=== PATIENT | female | born 1985 | race Caucasian/White ===

== ENCOUNTER 2018-04-14 18:33 | Inpatient (IN) | payer MEDICAID ==
[~2018-04-14] VITALS: Ht 152.4 cm; Wt 95.5 kg
--- NOTE | ~2018-04-14 | MORECARE ---
CASE MANAGEMENT DISCHARGE SUMMARY PATIENT: FELIX DEY UNIT: [id number] ADM DATE: 04/14/18 AGE: 33 : [birth year] SEX: F ROOM/BED: D.2309 AUTHOR: CASE, PLASMA TABLE OPERATOR PHYSICIAN: REFERRING PHYSICIAN: RYLEY GUTIERREZ MD DATE OF SERVICE: 04/14/18 Discharge Plan Patient Name: FELIX DEY Facility: [facility]:[place] : 1985 Planned Disposition: Anticipated Discharge Date: Discharge Date: Expected LOS: Initial Reviewer: [email or web address] Initial Review Date: 04/14/2018 Generated: 04/17/18 9:22 am Patient Name: FELIX DEY Page [id number] All edits/amendments must be made on the electronic document DICTATION DATE: 04/17/18820 PUPPY TRAINER: 04/17/18820 RPT#: [id number] DC DATE: STATUS: ADM IN [facility] [address] [place] [address] END OF REPORT
--- NOTE | ~2018-04-14 | CN ---
PATIENT NAME:FELIX DEY MEDICAL RECORD: [id number] : [birth year] LOCATION:LETY.2309 ADMIT DATE: 04/14/18 ACCOUNT: [id number] CONSULTING PHYSICIAN: GILDARDO MEJÍA MD REFERRING PHYSICIAN: RYLEY GUTIERREZ MD DATE OF CONSULTATION: 04/17/2018 IDENTIFYING DATA: The patient is 33 years old and she is admitted to the hospital on a voluntary basis. CHIEF COMPLAINT: Overdose. HISTORY OF PRESENT ILLNESS: The patient has a long history of mental illness and a well-established diagnosis of bipolar disorder. She recently moved here from [place]. She endorses a great number of stressors and depressive symptoms. She took a very serious overdose of Xanax, Valium, and amitriptyline; and was briefly intubated. She did this with the full intent of killing herself. She continues to endorse depressive symptoms and says she feels helpless and hopeless. MENTAL STATUS EXAMINATION: The patient is awake; alert; and oriented to person, place, time, and situation. Her mood is flat. Her affect is constricted. Thought processes are circumstantial. Memory, concentration, and abstraction abilities are mildly impaired. She denies any overt psychotic symptoms. ASSETS: Supportive family members. LIABILITIES: Limited insight. DIAGNOSTIC IMPRESSION: 1. Bipolar disorder. 2. Status post polysubstance overdose. PLAN: At this time, the patient requires inpatient psychiatric care and should be transferred to the nearest receiving facility once medically stable. Her long-term prognosis is guarded. TRANSINT:[id number] Voice Confirmation ID: [id number] DOCUMENT ID: [id number] GILDARDO MEJÍA MD at 1508 CC: [id number] DICTATION DATE: 04/17/18 1526 REMOTE RECRUITER: 04/17/18 1629 ADM IN [place] [id number] [place] [address]
--- NOTE | ~2018-04-14 | PN ---
PATIENT:FELIX DEY MEDICAL RECORD: [id number] LOCATION:[facility] D.230 ADMISSION DATE: 04/14/18 PROGRESS NOTE DATE OF SERVICE: 04/17/2018 HISTORY OF PRESENT ILLNESS: This is a 33-year-old female who was admitted through the Emergency Room for acute ingestion of benzodiazepine as well as alcohol. The patient was intubated. The patient was extubated yesterday. She is doing well, awake, and alert. There is no fever or chills. No chest pains. She had an uneventful night. Chest x-ray shows significant improvement with no atelectasis. PHYSICAL EXAMINATION: GENERAL: Physical exam reveals a young female who is in no acute distress. VITAL SIGNS: Temperature 97.5, heart rate of 90, respiratory rate of 18, blood pressure 106/76, saturation on room air is 96%. HEENT: Unremarkable. Normocephalic. Pupils are equal and reactive. NECK: Supple. There is no adenopathy. Trachea is midline. CHEST: Lungs are clear. There is no chest wall tenderness. HEART: Cardiac exam shows no jugular venous distention, murmur or gallop. ABDOMEN: Benign. There is no tenderness, no distention. EXTREMITIES: Show no clubbing, cyanosis or edema. LABORATORY DATA: Showed white count 11.6, hemoglobin 9.8, and platelet count is 238,000. The chemistry is unremarkable, essentially normal. ASSESSMENT: Acute drug overdose. The patient has improved. The patient would need a psychiatric consultation prior to discharge. She will also need increasing activity before discharge. PLAN: I will sign off on this patient. If needed, please consult pulmonary team. TRANSINT:[id number] Voice Confirmation ID: [id number] DOCUMENT ID: [id number] MARIAA BOLIVAR at 1307 CC: [id number] DICTATION DATE: 04/17/18 1658 COGENERATION OPERATOR: 04/17/18 2325 DIS IN 04/18/18 [place] [id number] [place] [address]
[2018-04-14] MEDS ORDERED: XANAX1 MG PO (18:53)
[2018-04-14] MEDS ORDERED: AMITRIPTYLINE100 MG PO (18:59)
[2018-04-14] MEDS ORDERED: DEPAKOTE SPRIN125 MG PO (18:59)
[2018-04-14] MEDS ORDERED: EFFEXOR75 MG (19:00)
[2018-04-14] MEDS ORDERED: HYDROCODONE-APA1 TAB PO (19:00)
[2018-04-14] MEDS ORDERED: SEROQUEL200 MG PO (19:00)
[2018-04-14] MEDS ORDERED: DITROPAN X5 MG/BOTTL (19:00)
[2018-04-14 19:30] VITALS: BP 130/74
[2018-04-14 19:36] LABS: BASOPHILS 0.1 % (0-2); EOSINOPHILS 1.4 % (0-7); HEMATOCRIT 36.2 % (36.0-48.0); HEMOGLOBIN 11.5 g/dL (12-16); IMMATURE GRANULOCYTES 1.3 % (0-5); LYMPHOCYTES 17.3 % (15-50); MCH 28.7 pg (26.0-34.0); MCHC 31.8 g/dL (31.0-37.0); MCV 90.3 fL (80.0-100.0); MEAN PLATELET VOLUME 10.3 fL (7.4-10.4); MONOCYTES 7.1 % (2-11); NEUTROPHILS 72.8 % (40-80); PLATELET COUNT 213 10x3/uL (130-400); RBC 4.01 10x6/uL (4.00-5.40); RDW 15.3 % (11.5-14.5); WBC 11.9 10x3/uL (4.8-10.8)
[2018-04-14 19:51] LABS: APPEARANCE CLEAR (CLEAR); BILIRUBIN NEGATIVE (NEGATIVE); COLOR STRAW (YELLOW); GLUCOSE NEGATIVE (NEGATIVE); KETONE NEGATIVE (NEGATIVE); NITRITE NEGATIVE (NEGATIVE); PROTEIN NEGATIVE (NEGATIVE); UROBILINOGEN NORMAL (NORMAL)
[2018-04-14 19:52] LABS: ALBUMIN 2.8 g/dL (3.4-5.0); ALKALINE PHOSPHATASE 85 U/L (46-116); ALT (SGPT) 20 U/L (10-68); BILIRUBIN - TOTAL 0.14 mg/dL (0.2-1.3); CALC OSMOLALITY 275 mosm/kg (275-300); CALCIUM 8.2 mg/dL (8.5-10.1); CARBON DIOXIDE 28.1 mmol/L (21.0-32.0); CHLORIDE - SERUM 104 mmol/L (98-107); CREATININE - SERUM 1.1 mg/dL (0.6-1.3); GLUCOSE 94 mg/dL (74-106); MAGNESIUM - SERUM 1.8 mg/dL (1.8-2.4); PROTEIN - SERUM 7.2 g/dL (6.4-8.2); SODIUM 138 mmol/L (136-145); UREA NITROGEN 12 mg/dL (7-18); WHITE CELLS - URINE 0-5 /hpf (0-5); eGFR NON AFRICAN AMERICAN 60 mL/min (90-120)
[2018-04-14 19:53] LABS: BACTERIA FEW /hpf (NONE SEEN)
[2018-04-14 19:56] LABS: HCG URINE NEGATIVE (NEGATIVE)
[2018-04-14 19:57] LABS: UDS - AMPHET NEGATIVE QUAL (NEGATIVE); UDS - BARB NEGATIVE QUAL (NEGATIVE); UDS - BENZO POSITIVE QUAL (NEGATIVE); UDS - COCAINE NEGATIVE QUAL (NEGATIVE); UDS - OPIATE NEGATIVE QUAL (NEGATIVE); UDS - PCP NEGATIVE QUAL (NEGATIVE); UDS - THC NEGATIVE QUAL (NEGATIVE)
[2018-04-14 20:30] VITALS: BP 119/67
[2018-04-14 20:32] LABS: CKMB 1.8 U/L (0.0-3.6); CREATINE KINASE 479 UL (21-215); TROPONIN-I < 0.017 ng/mL (0.000-0.060)
[2018-04-14 21:30] VITALS: BP 125/68
[2018-04-14 22:30] VITALS: BP 129/71
[2018-04-14 23:30] VITALS: BP 128/78
[2018-04-15] VITALS (21 sets, daily range): BP systolic 127–142; BP diastolic 68–102
[2018-04-15 03:00] LABS: BASOPHILS 0.3 % (0-2); EOSINOPHILS 1.1 % (0-7); HEMATOCRIT 36.2 % (36.0-48.0); HEMOGLOBIN 11.5 g/dL (12-16); IMMATURE GRANULOCYTES 1.9 % (0-5); LYMPHOCYTES 18.7 % (15-50); MCH 28.8 pg (26.0-34.0); MCHC 31.8 g/dL (31.0-37.0); MCV 90.7 fL (80.0-100.0); MEAN PLATELET VOLUME 9.9 fL (7.4-10.4); PLATELET COUNT 214 10x3/uL (130-400); RBC 3.99 10x6/uL (4.00-5.40); RDW 15.5 % (11.5-14.5)
[2018-04-15 03:36] LABS: ALBUMIN 2.8 g/dL (3.4-5.0); ANION GAP 9.8 mmol/L (8-16); BILIRUBIN - TOTAL 0.18 mg/dL (0.2-1.3); CALCIUM 8.2 mg/dL (8.5-10.1); CARBON DIOXIDE 30.5 mmol/L (21.0-32.0); POTASSIUM - SERUM 4.3 mmol/L (3.5-5.1); PROTEIN - SERUM 7.1 g/dL (6.4-8.2)
[2018-04-16] VITALS (33 sets, daily range): BP systolic 91–136; BP diastolic 60–92
[2018-04-16 03:16] LABS: BASOPHILS 0.2 % (0-2); EOSINOPHILS 2.5 % (0-7); HEMATOCRIT 34.6 % (36.0-48.0); HEMOGLOBIN 10.9 g/dL (12-16); IMMATURE GRANULOCYTES 1.4 % (0-5); LYMPHOCYTES 25.9 % (15-50); MCH 28.4 pg (26.0-34.0); MCHC 31.5 g/dL (31.0-37.0); MCV 90.1 fL (80.0-100.0); MEAN PLATELET VOLUME 9.5 fL (7.4-10.4); MONOCYTES 11.1 % (2-11); NEUTROPHILS 58.9 % (40-80); PLATELET COUNT 209 10x3/uL (130-400); RBC 3.84 10x6/uL (4.00-5.40); RDW 15.8 % (11.5-14.5); WBC 10.6 10x3/uL (4.8-10.8)
[2018-04-16 03:55] LABS: ALBUMIN 2.4 g/dL (3.4-5.0); ALKALINE PHOSPHATASE 86 U/L (46-116); BILIRUBIN - TOTAL 0.14 mg/dL (0.2-1.3); CARBON DIOXIDE 27.2 mmol/L (21.0-32.0); CHLORIDE - SERUM 106 mmol/L (98-107); CREATINE KINASE 155 UL (21-215); CREATININE - SERUM 0.8 mg/dL (0.6-1.3); GLUCOSE 108 mg/dL (74-106); MAGNESIUM - SERUM 1.8 mg/dL (1.8-2.4); PHOSPHOROUS 4.8 mg/dL (2.5-4.9); POTASSIUM - SERUM 4.1 mmol/L (3.5-5.1); PRO BNP 57 pg/mL (0-125); PROTEIN - SERUM 6.6 g/dL (6.4-8.2); SODIUM 140 mmol/L (136-145); eGFR NON AFRICAN AMERICAN 87 mL/min (90-120)
[2018-04-16 03:56] LABS: ALT (SGPT) 13 U/L (10-68); CALC OSMOLALITY 278 mosm/kg (275-300); UREA NITROGEN 9 mg/dL (7-18)
[2018-04-16] MEDS ORDERED: NYSTATIN OINTME15 GM TOPICAL (17:14)
[2018-04-16] MEDS ORDERED: CELEXA20 MG PO (17:15)
[2018-04-16] MEDS ORDERED: DEPAKOTE500 MG PO (17:15)
[2018-04-16] MEDS ORDERED: SEROQUEL300 MG PO (17:17)
[2018-04-16] MEDS ORDERED: VISTARIL25 MG PO (17:17)
[2018-04-17] VITALS (23 sets, daily range): BP systolic 93–125; BP diastolic 44–86; Ht 152.4 cm; Wt 95.5 kg
[2018-04-17 04:33] LABS: BASOPHILS 0.2 % (0-2); HEMATOCRIT 30.9 % (36.0-48.0); HEMOGLOBIN 9.8 g/dL (12-16); MCH 28.5 pg (26.0-34.0); MCHC 31.7 g/dL (31.0-37.0); MCV 89.8 fL (80.0-100.0); MEAN PLATELET VOLUME 9.9 fL (7.4-10.4); MONOCYTES 10.2 % (2-11); NEUTROPHILS 59.6 % (40-80); PLATELET COUNT 238 10x3/uL (130-400); RBC 3.44 10x6/uL (4.00-5.40); RDW 15.8 % (11.5-14.5); WBC 11.6 10x3/uL (4.8-10.8)
[2018-04-17 04:54] LABS: ALBUMIN 2.3 g/dL (3.4-5.0); ALKALINE PHOSPHATASE 96 U/L (46-116); BILIRUBIN - TOTAL 0.25 mg/dL (0.2-1.3); CALC OSMOLALITY 278 mosm/kg (275-300); CALCIUM 7.8 mg/dL (8.5-10.1); CARBON DIOXIDE 27.7 mmol/L (21.0-32.0); CHLORIDE - SERUM 106 mmol/L (98-107); CREATININE - SERUM 0.9 mg/dL (0.6-1.3); GLUCOSE 97 mg/dL (74-106); PROTEIN - SERUM 6.6 g/dL (6.4-8.2); SODIUM 141 mmol/L (136-145); UREA NITROGEN 8 mg/dL (7-18); eGFR NON AFRICAN AMERICAN 76 mL/min (90-120)
[2018-04-17 05:00] LABS: ALT (SGPT) 20 U/L (10-68)
[2018-04-18] VITALS (9 sets, daily range): BP systolic 98–118; BP diastolic 50–87
[2018-04-18 04:55] LABS: BASOPHILS 0.2 % (0-2); EOSINOPHILS 6.4 % (0-7); HEMATOCRIT 30.9 % (36.0-48.0); HEMOGLOBIN 9.8 g/dL (12-16); IMMATURE GRANULOCYTES 1.8 % (0-5); LYMPHOCYTES 29.1 % (15-50); MCH 28.4 pg (26.0-34.0); MCHC 31.7 g/dL (31.0-37.0); MCV 89.6 fL (80.0-100.0); MEAN PLATELET VOLUME 10.3 fL (7.4-10.4); MONOCYTES 10.1 % (2-11); NEUTROPHILS 52.4 % (40-80); PLATELET COUNT 282 10x3/uL (130-400); RBC 3.45 10x6/uL (4.00-5.40); RDW 15.2 % (11.5-14.5); WBC 9.5 10x3/uL (4.8-10.8)
[2018-04-18 05:46] LABS: ALBUMIN 2.4 g/dL (3.4-5.0); ALKALINE PHOSPHATASE 89 U/L (46-116); BILIRUBIN - TOTAL 0.15 mg/dL (0.2-1.3); CALCIUM 8.1 mg/dL (8.5-10.1); CARBON DIOXIDE 29.1 mmol/L (21.0-32.0); CHLORIDE - SERUM 105 mmol/L (98-107); CREATININE - SERUM 0.9 mg/dL (0.6-1.3); GLUCOSE 122 mg/dL (74-106); POTASSIUM - SERUM 3.7 mmol/L (3.5-5.1); PROTEIN - SERUM 6.7 g/dL (6.4-8.2); SODIUM 141 mmol/L (136-145); eGFR NON AFRICAN AMERICAN 76 mL/min (90-120)
[2018-04-18 05:50] LABS: ALT (SGPT) 34 U/L (10-68); CALC OSMOLALITY 280 mosm/kg (275-300); UREA NITROGEN 11 mg/dL (7-18)
[2018-04-18] MEDS ORDERED: Levaquin PREMIX IV (13:02)
[2018-04-18] MEDS ORDERED: LEVAQUIN500 MG PO (13:02)
== END 2018-04-18 15:15 | DRG 917 ==
LOC: D.ER 18:33 → D.EDHOLD 20:22 → D.ICU 20:22
PROVIDERS: Family Medicine; Internal Medicine Nephrology
PROC: 5A1945Z Respiratory Ventilation, 24-96 Consecutive Hours (ICD-10-PCS; principal; 2018-04-14)
PROC: 5A1945Z Respiratory Ventilation, 24-96 Consecutive Hours (ICD-10-PCS; 2018-04-14)
DX: T42.4X2A Poisoning by benzodiazepines, intentional self-harm, initial encounter (principal); J96.00 Acute respiratory failure, unspecified whether with hypoxia or hypercapnia; R40.2213 Coma scale, best verbal response, none, at hospital admission; J98.11 Atelectasis; F31.9 Bipolar disorder, unspecified; D64.9 Anemia, unspecified; E88.09 Other disorders of plasma-protein metabolism, not elsewhere classified; R40.2363 Coma scale, best motor response, obeys commands, at hospital admission; R40.2133 Coma scale, eyes open, to sound, at hospital admission

== ENCOUNTER 2018-05-19 11:21 | Emergency (ER) | payer MEDICAID ==
[~2018-05-19] VITALS: Ht 152.4 cm; Wt 86.4 kg
[~2018-05-19 11:21] MED LIST: AMITRIPTYLINE100 MG PO; CELEXA20 MG PO; DEPAKOTE SPRIN125 MG PO; DEPAKOTE500 MG PO; DITROPAN X5 MG/BOTTL; EFFEXOR75 MG; HYDROCODONE-APA1 TAB PO; LEVAQUIN500 MG PO; Levaquin PREMIX IV; NYSTATIN OINTME15 GM TOPICAL; SEROQUEL200 MG PO; SEROQUEL300 MG PO; VISTARIL25 MG PO; XANAX1 MG PO
[2018-05-19 11:39] VITALS: Ht 152.4 cm; Wt 86.4 kg
[2018-05-19 12:14] LABS: BASOPHILS 0.2 % (0-2); EOSINOPHILS 7.6 % (0-7); HEMATOCRIT 35.9 % (36.0-48.0); HEMOGLOBIN 11.4 g/dL (12-16); IMMATURE GRANULOCYTES 1.4 % (0-5); LYMPHOCYTES 27.7 % (15-50); MCH 28.8 pg (26.0-34.0); MCHC 31.8 g/dL (31.0-37.0); MCV 90.7 fL (80.0-100.0); NEUTROPHILS 54.1 % (40-80); PLATELET COUNT 287 10x3/uL (130-400); RBC 3.96 10x6/uL (4.00-5.40); RDW 15.8 % (11.5-14.5); WBC 8.3 10x3/uL (4.8-10.8)
[2018-05-19 12:21] LABS: APPEARANCE CLEAR (CLEAR); BILIRUBIN NEGATIVE (NEGATIVE); COLOR YELLOW (YELLOW); GLUCOSE NEGATIVE (NEGATIVE); KETONE NEGATIVE (NEGATIVE); NITRITE NEGATIVE (NEGATIVE); PROTEIN NEGATIVE (NEGATIVE); UROBILINOGEN NORMAL (NORMAL)
[2018-05-19 12:23] LABS: ALBUMIN 3.1 g/dL (3.4-5.0); CALCIUM 8.4 mg/dL (8.5-10.1); CARBON DIOXIDE 25.5 mmol/L (21.0-32.0); POTASSIUM - SERUM 4.5 mmol/L (3.5-5.1); PROTEIN - SERUM 7.1 g/dL (6.4-8.2)
[2018-05-19 12:29] LABS: BILIRUBIN - TOTAL 0.09 mg/dL (0.2-1.3)
[2018-05-19 12:30] LABS: UDS - AMPHET NEGATIVE QUAL (NEGATIVE); UDS - BARB NEGATIVE QUAL (NEGATIVE); UDS - BENZO NEGATIVE QUAL (NEGATIVE); UDS - COCAINE NEGATIVE QUAL (NEGATIVE); UDS - OPIATE POSITIVE QUAL (NEGATIVE); UDS - PCP NEGATIVE QUAL (NEGATIVE); UDS - THC POSITIVE QUAL (NEGATIVE)
[2018-05-20] MEDS ORDERED: ZYPREXA20 MG (01:01)
[2018-05-20] MEDS ORDERED: ZYPREXA20 MG PO ×2 (01:01→02:55)
[2018-05-20] MEDS ORDERED: DEPAKOTE500 MG PO (01:02)
[2018-05-20] MEDS ORDERED: CYMBALTA30 MG PO (01:03)
[2018-05-20] MEDS ORDERED: FERROUS SULFAT325 MG PO (01:03)
[2018-05-20] MEDS ORDERED: OXYBUTYNIN CHLOR5 MG PO (01:04)
[2018-05-20] MEDS ORDERED: KEFLEX500 MG (01:05)
[2018-05-20] MEDS ORDERED: HYDROXYZINE HCL50 MG (01:05)
[2018-05-20] MEDS ORDERED: PHENERGAN25 M1 (01:07)
[2018-05-20 04:31] LABS: HCG SERUM NEGATIVE (NEGATIVE)
[2018-05-20 09:44] VITALS: BP 126/72
== END 2018-05-20 09:45 ==
LOC: D.ER 11:21
PROVIDERS: Emergency Medicine; Family Medicine
DX: F32.9 Major depressive disorder, single episode, unspecified (principal); R44.3 Hallucinations, unspecified; R45.851 Suicidal ideations; F17.200 Nicotine dependence, unspecified, uncomplicated

== ENCOUNTER 2018-10-22 23:52 | Emergency (ER) | payer MEDICAID ==
[~2018-10-22] VITALS: Ht 152.4 cm; Wt 104.5 kg
[~2018-10-22 23:52] MED LIST changes: +CYMBALTA30 MG PO; +FERROUS SULFAT325 MG PO; +HYDROXYZINE HCL50 MG; +KEFLEX500 MG; +OXYBUTYNIN CHLOR5 MG PO; +PHENERGAN25 M1; +ZYPREXA20 MG; +ZYPREXA20 MG PO
[2018-10-22 23:58] VITALS: Ht 152.4 cm; Wt 104.5 kg
[2018-10-23] MEDS ORDERED: CELEXA40 MG PO (00:02)
[2018-10-23] MEDS ORDERED: DEPAKOTE500 MG PO (00:02)
[2018-10-23] MEDS ORDERED: SEROQUEL200 MG PO (00:02)
[2018-10-23] MEDS ORDERED: LITHOBID 300 M300 MG PO (00:02)
[2018-10-23] MEDS ORDERED: LIPITOR10 MG PO (00:03)
[2018-10-23] MEDS ORDERED: TRAZODONE HCL150 MG PO (00:03)
[2018-10-23] MEDS ORDERED: MINIPRESS1 MG PO (00:03)
[2018-10-23 00:24] LABS: BASOPHILS 0.2 % (0-2); HEMATOCRIT 36.3 % (36.0-48.0); HEMOGLOBIN 11.5 g/dL (12-16); IMMATURE GRANULOCYTES 1.1 % (0-5); LYMPHOCYTES 38.7 % (15-50); MCH 30.9 pg (26.0-34.0); MCHC 31.7 g/dL (31.0-37.0); MCV 97.6 fL (80.0-100.0); MEAN PLATELET VOLUME 10.3 fL (7.4-10.4); MONOCYTES 6.1 % (2-11); NEUTROPHILS 48.9 % (40-80); RBC 3.72 10x6/uL (4.00-5.40); RDW 13.7 % (11.5-14.5)
[2018-10-23 00:25] LABS: PLATELET COUNT 183 10x3/uL (130-400)
[2018-10-23 00:30] LABS: APPEARANCE CLEAR (CLEAR); COLOR YELLOW (YELLOW); NITRITE NEGATIVE (NEGATIVE)
[2018-10-23 00:31] LABS: BILIRUBIN NEGATIVE (NEGATIVE); GLUCOSE NEGATIVE (NEGATIVE); HCG URINE NEGATIVE (NEGATIVE); KETONE NEGATIVE (NEGATIVE); PROTEIN NEGATIVE (NEGATIVE); UROBILINOGEN NORMAL (NORMAL)
[2018-10-23 00:40] LABS: UDS - AMPHET NEGATIVE QUAL (NEGATIVE); UDS - BARB NEGATIVE QUAL (NEGATIVE); UDS - BENZO NEGATIVE QUAL (NEGATIVE); UDS - COCAINE NEGATIVE QUAL (NEGATIVE); UDS - OPIATE NEGATIVE QUAL (NEGATIVE); UDS - PCP NEGATIVE QUAL (NEGATIVE); UDS - THC NEGATIVE QUAL (NEGATIVE)
[2018-10-23 00:44] LABS: ALBUMIN 2.8 g/dL (3.4-5.0); ANION GAP 13.8 mmol/L (8-16); BILIRUBIN - TOTAL 0.22 mg/dL (0.2-1.3); CALCIUM 7.7 mg/dL (8.5-10.1); CARBON DIOXIDE 24.3 mmol/L (21.0-32.0); CREATININE - SERUM 1.3 mg/dL (0.6-1.3); POTASSIUM - SERUM 4.1 mmol/L (3.5-5.1); PROTEIN - SERUM 6.7 g/dL (6.4-8.2); VALPROIC ACID (DEPAKOTE) 89.7 ug/mL (50.0-100.0)
[2018-10-23] MEDS ORDERED: VOLTAREN75 MG PO (01:33)
[2018-10-23 02:00] VITALS: BP 120/76
== END 2018-10-23 02:00 | disposition home or self-care (01) ==
LOC: D.ER 23:52
PROVIDERS: Emergency Medicine
DX: G40.909 Epilepsy, unspecified, not intractable, without status epilepticus (principal); R51 Headache; R11.0 Nausea; F17.200 Nicotine dependence, unspecified, uncomplicated

== ENCOUNTER 2018-12-24 12:44 | Emergency (ER) | payer MEDICAID ==
[~2018-12-24 12:44] MED LIST changes: +CELEXA40 MG PO; +LIPITOR10 MG PO; +LITHOBID 300 M300 MG PO; +MINIPRESS1 MG PO; +TRAZODONE HCL150 MG PO; +VOLTAREN75 MG PO
[2018-12-24 13:15] LABS: BASOPHILS 0.3 % (0-2); EOSINOPHILS 4.5 % (0-7); IMMATURE GRANULOCYTES 0.6 % (0-5); LYMPHOCYTES 32.7 % (15-50); MCH 31.1 pg (26.0-34.0); MCHC 32.5 g/dL (31.0-37.0); MCV 95.7 fL (80.0-100.0); MEAN PLATELET VOLUME 10.4 fL (7.4-10.4); NEUTROPHILS 55.9 % (40-80); PLATELET COUNT 210 10x3/uL (130-400); RBC 4.18 10x6/uL (4.00-5.40); RDW 13.1 % (11.5-14.5)
[2018-12-24 13:28] LABS: ALBUMIN 3.4 g/dL (3.4-5.0); ALKALINE PHOSPHATASE 111 U/L (46-116); ALT (SGPT) 52 U/L (10-68); BILIRUBIN - TOTAL 0.23 mg/dL (0.2-1.3); CALC OSMOLALITY 277 mosm/kg (275-300); CALCIUM 8.8 mg/dL (8.5-10.1); CARBON DIOXIDE 29.2 mmol/L (21.0-32.0); CHLORIDE - SERUM 105 mmol/L (98-107); GLUCOSE 92 mg/dL (74-106); POTASSIUM - SERUM 4.2 mmol/L (3.5-5.1); PROTEIN - SERUM 7.5 g/dL (6.4-8.2); SODIUM 139 mmol/L (136-145); UREA NITROGEN 13 mg/dL (7-18); eGFR NON AFRICAN AMERICAN 67 mL/min (90-120)
[2018-12-24 13:38] LABS: CKMB 0.7 U/L (0.0-3.6); CREATINE KINASE 46 UL (21-215); MAGNESIUM - SERUM 1.9 mg/dL (1.8-2.4); VALPROIC ACID (DEPAKOTE) 87.7 ug/mL (50.0-100.0)
[2018-12-24 13:40] LABS: TROPONIN-I < 0.017 ng/mL (0.000-0.060)
[2018-12-24 13:56] LABS: APPEARANCE CLEAR (CLEAR); BILIRUBIN NEGATIVE (NEGATIVE); COLOR STRAW (YELLOW); GLUCOSE NEGATIVE (NEGATIVE); KETONE NEGATIVE (NEGATIVE); NITRITE NEGATIVE (NEGATIVE); PROTEIN NEGATIVE (NEGATIVE); SPECIFIC GRAVITY 1.005 (1.005-1.020); UROBILINOGEN NORMAL (NORMAL)
[2018-12-24 14:07] LABS: UDS - AMPHET NEGATIVE QUAL (NEGATIVE); UDS - BARB NEGATIVE QUAL (NEGATIVE); UDS - BENZO POSITIVE QUAL (NEGATIVE); UDS - COCAINE NEGATIVE QUAL (NEGATIVE); UDS - OPIATE NEGATIVE QUAL (NEGATIVE); UDS - PCP NEGATIVE QUAL (NEGATIVE); UDS - THC NEGATIVE QUAL (NEGATIVE)
== END 2018-12-24 17:37 | disposition home or self-care (01) ==
LOC: D.ER 12:44
PROVIDERS: Family Medicine
DX: G40.909 Epilepsy, unspecified, not intractable, without status epilepticus (principal)

== ENCOUNTER 2018-12-26 05:08 | Emergency (ER) | payer MEDICAID ==
[~2018-12-26] VITALS: Ht 152.4 cm; Wt 113.6 kg
[2018-12-26 05:10] VITALS: Ht 152.4 cm; Wt 113.6 kg
[2018-12-26 07:05] LABS: ALBUMIN 3.1 g/dL (3.4-5.0); ANION GAP 13.9 mmol/L (8-16); BILIRUBIN - TOTAL 0.18 mg/dL (0.2-1.3); CALCIUM 8.7 mg/dL (8.5-10.1); CARBON DIOXIDE 25.2 mmol/L (21.0-32.0); CREATININE - SERUM 1.1 mg/dL (0.6-1.3); MAGNESIUM - SERUM 2.2 mg/dL (1.8-2.4); POTASSIUM - SERUM 4.1 mmol/L (3.5-5.1); PROTEIN - SERUM 7.1 g/dL (6.4-8.2)
[2018-12-26 07:15] LABS: BASOPHILS 0.2 % (0-2); EOSINOPHILS 4.1 % (0-7); HEMATOCRIT 37.7 % (36.0-48.0); HEMOGLOBIN 12.4 g/dL (12-16); IMMATURE GRANULOCYTES 0.9 % (0-5); LYMPHOCYTES 30.6 % (15-50); MCH 31.4 pg (26.0-34.0); MCHC 32.9 g/dL (31.0-37.0); MCV 95.4 fL (80.0-100.0); MEAN PLATELET VOLUME 10.6 fL (7.4-10.4); MONOCYTES 8.2 % (2-11); PLATELET COUNT 205 10x3/uL (130-400); RBC 3.95 10x6/uL (4.00-5.40); RDW 13.4 % (11.5-14.5); WBC 8.7 10x3/uL (4.8-10.8)
[2018-12-26 08:26] VITALS: BP 114/67
== END 2018-12-26 08:28 | disposition home or self-care (01) ==
LOC: D.ER 05:08
PROVIDERS: Family Medicine
DX: G40.89 Other seizures (principal)

== ENCOUNTER 2019-11-11 17:58 | Emergency (ER) | payer MEDICAID ==
[~2019-11-11] VITALS: Ht 152.4 cm; Wt 113.6 kg
[2019-11-11 18:27] VITALS: Ht 152.4 cm; Wt 113.6 kg
[2019-11-11 19:12] LABS: BASOPHILS 0.2 % (0-2); EOSINOPHILS 2.4 % (0-7); HEMATOCRIT 39.2 % (36.0-48.0); HEMOGLOBIN 12.7 g/dL (12-16); IMMATURE GRANULOCYTES 0.7 % (0-5); LYMPHOCYTES 32.1 % (15-50); MCH 31.4 pg (26.0-34.0); MCHC 32.4 g/dL (31.0-37.0); MCV 96.8 fL (80.0-100.0); MEAN PLATELET VOLUME 10.6 fL (7.4-10.4); MONOCYTES 4.5 % (2-11); NEUTROPHILS 60.1 % (40-80); PLATELET COUNT 320 10x3/uL (130-400); RBC 4.05 10x6/uL (4.00-5.40); RDW 13.4 % (11.5-14.5); WBC 12.7 10x3/uL (4.8-10.8)
[2019-11-11 19:21] LABS: APTT 30.5 SECONDS (22.8-39.4); INR 0.92 (0.85-1.17); PROTIME 12.3 SECONDS (11.6-15.0)
[2019-11-11 19:59] LABS: ALBUMIN 3.8 g/dL (3.4-5.0); ALKALINE PHOSPHATASE 122 U/L (30-120); ALT (SGPT) 30 U/L (10-68); BILIRUBIN - TOTAL 0.29 mg/dL (0.2-1.3); CALC OSMOLALITY 278 mosm/kg (275-300); CALCIUM 9.3 mg/dL (8.5-10.1); CARBON DIOXIDE 29.6 mmol/L (21.0-32.0); CHLORIDE - SERUM 103 mmol/L (98-107); CKMB 0.5 U/L (0.0-3.6); CREATINE KINASE 70 UL (21-215); GLUCOSE 109 mg/dL (74-106); MAGNESIUM - SERUM 2.3 mg/dL (1.8-2.4); PROTEIN - SERUM 7.5 g/dL (6.4-8.2); SODIUM 140 mmol/L (136-145); UREA NITROGEN 11 mg/dL (7-18); VALPROIC ACID (DEPAKOTE) 54.4 ug/mL (50.0-100.0); eGFR NON AFRICAN AMERICAN 67 mL/min (90-120)
[2019-11-11 20:03] LABS: TROPONIN-I < 0.017 ng/mL (0.000-0.060)
[2019-11-11 20:05] LABS: POTASSIUM - SERUM 2.8 mmol/L (3.5-5.1)
[2019-11-11 20:44] LABS: BILIRUBIN NEGATIVE (NEGATIVE); GLUCOSE NEGATIVE (NEGATIVE); KETONE NEGATIVE (NEGATIVE); NITRITE NEGATIVE (NEGATIVE); SPECIFIC GRAVITY 1.005 (1.005-1.020); UROBILINOGEN NORMAL (NORMAL)
[2019-11-11 21:11] LABS: UDS - AMPHET NEGATIVE QUAL (NEGATIVE); UDS - BARB NEGATIVE QUAL (NEGATIVE); UDS - BENZO NEGATIVE QUAL (NEGATIVE); UDS - COCAINE NEGATIVE QUAL (NEGATIVE); UDS - OPIATE NEGATIVE QUAL (NEGATIVE); UDS - PCP NEGATIVE QUAL (NEGATIVE); UDS - THC NEGATIVE QUAL (NEGATIVE)
[2019-11-11] MEDS ORDERED: NAPROSYN500 MG PO (21:21)
[2019-11-11] MEDS ORDERED: KLOR-CON 1010 MEQ PO (21:23)
[2019-11-11 22:13] VITALS: BP 132/87
[2019-11-12] MEDS ORDERED: LEXAPRO20 MG PO (18:27)
[2019-11-12] MEDS ORDERED: HYDROCHLOROTHIA25 MG PO (18:28)
[2019-11-12] MEDS ORDERED: RANITIDINE HCL150 M1 PO (18:29)
== END 2019-11-11 22:13 | disposition home or self-care (01) ==
LOC: D.ER 17:58
PROVIDERS: Family Medicine
DX: R55 Syncope and collapse (principal); E87.6 Hypokalemia; M25.512 Pain in left shoulder; G40.909 Epilepsy, unspecified, not intractable, without status epilepticus; W19.XXXA Unspecified fall, initial encounter; Y93.9 Activity, unspecified; Y92.9 Unspecified place or not applicable; Z87.81 Personal history of (healed) traumatic fracture

== ENCOUNTER 2019-11-12 18:17 | Emergency (ER) | payer MEDICAID ==
[~2019-11-12] VITALS: Ht 152.4 cm; Wt 113.6 kg
[~2019-11-12 18:17] MED LIST changes: +KLOR-CON 1010 MEQ PO; +NAPROSYN500 MG PO
[2019-11-12 18:25] VITALS: Ht 152.4 cm; Wt 113.6 kg
[2019-11-12] MEDS ORDERED: LEXAPRO20 MG PO (18:27)
[2019-11-12] MEDS ORDERED: HYDROCHLOROTHIA25 MG PO (18:28)
[2019-11-12] MEDS ORDERED: RANITIDINE HCL150 M1 PO (18:29)
[2019-11-12 18:47] LABS: UDS - AMPHET NEGATIVE QUAL (NEGATIVE); UDS - BARB NEGATIVE QUAL (NEGATIVE); UDS - BENZO NEGATIVE QUAL (NEGATIVE); UDS - COCAINE NEGATIVE QUAL (NEGATIVE); UDS - OPIATE NEGATIVE QUAL (NEGATIVE); UDS - PCP NEGATIVE QUAL (NEGATIVE); UDS - THC NEGATIVE QUAL (NEGATIVE)
[2019-11-12 18:49] LABS: BILIRUBIN NEGATIVE (NEGATIVE); GLUCOSE NEGATIVE (NEGATIVE); KETONE NEGATIVE (NEGATIVE); NITRITE NEGATIVE (NEGATIVE); UROBILINOGEN NORMAL (NORMAL)
[2019-11-12 18:50] LABS: BACTERIA FEW /hpf (NEGATIVE); EPITHELIAL CELLS 0-5 /hpf (0-5); RED CELLS - URINE OCC /hpf (0-5); WHITE CELLS - URINE OCC /hpf (NEGATIVE)
[2019-11-12 19:10] LABS: BASOPHILS 0.2 % (0-2); EOSINOPHILS 2.3 % (0-7); HEMATOCRIT 35.9 % (36.0-48.0); HEMOGLOBIN 11.6 g/dL (12-16); IMMATURE GRANULOCYTES 0.6 % (0-5); LYMPHOCYTES 34.5 % (15-50); MCH 31.2 pg (26.0-34.0); MCHC 32.3 g/dL (31.0-37.0); MCV 96.5 fL (80.0-100.0); MEAN PLATELET VOLUME 10.3 fL (7.4-10.4); MONOCYTES 5.9 % (2-11); NEUTROPHILS 56.5 % (40-80); PLATELET COUNT 288 10x3/uL (130-400); RBC 3.72 10x6/uL (4.00-5.40); RDW 13.5 % (11.5-14.5); WBC 12.5 10x3/uL (4.8-10.8)
--- NOTE | 2019-11-12 19:21 | NUR ---
DR MEJÍA NOTIFIED AND SITTER ORDERED, SITTER AT BEDSIDE, NOTIFIED CHARGE NURSE AND ATTENDING IN REGARDS TO ASSESSMENT FINDINGS, RESOURCES GIVEN TO PT AND SAFETY PLAN INITIATED.
[2019-11-12 19:29] LABS: CALCIUM 8.6 mg/dL (8.5-10.1); CARBON DIOXIDE 28.1 mmol/L (21.0-32.0); CREATININE - SERUM 1.2 mg/dL (0.6-1.3); POTASSIUM - SERUM 3.1 mmol/L (3.5-5.1)
[2019-11-12 19:32] LABS: ACETAMINOPHEN 4.4 ug/mL (10.0-30.0); ALBUMIN 3.4 g/dL (3.4-5.0); BILIRUBIN - TOTAL 0.21 mg/dL (0.2-1.3); PROTEIN - SERUM 7.1 g/dL (6.4-8.2)
[2019-11-13 01:10] VITALS: BP 112/89
== END 2019-11-13 01:12 ==
LOC: D.ER 18:17
PROVIDERS: Family Medicine
DX: T14.91XA Suicide attempt, initial encounter (principal); D72.829 Elevated white blood cell count, unspecified; I10 Essential (primary) hypertension; Z72.0 Tobacco use; X78.8XXA Intentional self-harm by other sharp object, initial encounter; Y93.9 Activity, unspecified; Y92.9 Unspecified place or not applicable; D64.9 Anemia, unspecified

== ENCOUNTER 2020-01-12 15:35 | Emergency (ER) | payer MEDICAID ==
[~2020-01-12 15:35] MED LIST changes: +HYDROCHLOROTHIA25 MG PO; +LEXAPRO20 MG PO; +RANITIDINE HCL150 M1 PO
[2020-01-12 15:36] VITALS: Ht 152.4 cm
[2020-01-12] MEDS ORDERED: CYCLOBENZAPRINE10 MG PO (17:55)
[2020-01-12 18:06] VITALS: BP 119/83
== END 2020-01-12 18:06 | disposition home or self-care (01) ==
LOC: D.ER 15:35
DX: S39.012A Strain of muscle, fascia and tendon of lower back, initial encounter (principal); S16.1XXA Strain of muscle, fascia and tendon at neck level, initial encounter; S40.012A Contusion of left shoulder, initial encounter; I10 Essential (primary) hypertension; W19.XXXA Unspecified fall, initial encounter; Y93.9 Activity, unspecified; Y92.9 Unspecified place or not applicable

== ENCOUNTER 2020-01-18 15:49 | Emergency (ER) | payer MEDICAID ==
[~2020-01-18] VITALS: Ht 167.6 cm; Wt 113.6 kg
[~2020-01-18 15:49] MED LIST changes: +CYCLOBENZAPRINE10 MG PO
[2020-01-18 16:02] VITALS: Ht 167.6 cm; Wt 113.6 kg
[2020-01-18 16:22] LABS: BILIRUBIN NEGATIVE (NEGATIVE); GLUCOSE NEGATIVE (NEGATIVE); KETONE NEGATIVE (NEGATIVE); NITRITE NEGATIVE (NEGATIVE); SPECIFIC GRAVITY 1.025 (1.005-1.020); UROBILINOGEN NORMAL (NORMAL)
[2020-01-18 16:25] LABS: BACTERIA FEW /hpf (NEGATIVE); EPITHELIAL CELLS 0-5 /hpf (0-5); RED CELLS - URINE 0-5 /hpf (0-5); UDS - AMPHET NEGATIVE QUAL (NEGATIVE); UDS - BARB NEGATIVE QUAL (NEGATIVE); UDS - BENZO POSITIVE QUAL (NEGATIVE); UDS - COCAINE NEGATIVE QUAL (NEGATIVE); UDS - OPIATE NEGATIVE QUAL (NEGATIVE); UDS - PCP NEGATIVE QUAL (NEGATIVE); UDS - THC NEGATIVE QUAL (NEGATIVE); WHITE CELLS - URINE 0-5 /hpf (NEGATIVE)
[2020-01-18 16:28] LABS: BASOPHILS 0.2 % (0-2); EOSINOPHILS 2.9 % (0-7); HEMATOCRIT 38.2 % (36.0-48.0); HEMOGLOBIN 11.9 g/dL (12-16); IMMATURE GRANULOCYTES 0.8 % (0-5); LYMPHOCYTES 35.6 % (15-50); MCH 29.5 pg (26.0-34.0); MCHC 31.2 g/dL (31.0-37.0); MCV 94.6 fL (80.0-100.0); MEAN PLATELET VOLUME 10.9 fL (7.4-10.4); MONOCYTES 6.9 % (2-11); NEUTROPHILS 53.6 % (40-80); RBC 4.04 10x6/uL (4.00-5.40); RDW 13.3 % (11.5-14.5); WBC 9.2 10x3/uL (4.8-10.8)
[2020-01-18 16:32] LABS: ANION GAP 13.6 mmol/L (8-16); CALCIUM 9.3 mg/dL (8.5-10.1); CARBON DIOXIDE 24.1 mmol/L (21.0-32.0); CREATININE - SERUM 1.1 mg/dL (0.6-1.3); POTASSIUM - SERUM 3.7 mmol/L (3.5-5.1)
[2020-01-18 16:36] LABS: PLATELET COUNT 227 10x3/uL (130-400)
[2020-01-18 16:38] LABS: ALBUMIN 3.4 g/dL (3.4-5.0); BILIRUBIN - TOTAL 0.22 mg/dL (0.2-1.3); MAGNESIUM - SERUM 1.6 mg/dL (1.8-2.4); PROTEIN - SERUM 7.3 g/dL (6.4-8.2)
[2020-01-18 16:39] LABS: HCG URINE NEGATIVE (NEGATIVE)
--- NOTE | 2020-01-18 17:03 | NUR ---
According to the suicide assessment the patient scores high and she will need a 1:1 observation. Suicide resource flyer and a safety plan provided.
[2020-01-18 18:51] VITALS: BP 120/78
== END 2020-01-18 19:08 ==
LOC: D.ER 15:49
PROVIDERS: Family Medicine
DX: R45.851 Suicidal ideations (principal); F41.8 Other specified anxiety disorders; S61.512A Laceration without foreign body of left wrist, initial encounter; I10 Essential (primary) hypertension; Z72.0 Tobacco use